=== PATIENT | male | born 1945 | race Caucasian/White ===

== ENCOUNTER → 2016-12-11 | Outpatient (CLI) | payer MEDICARE ==
[~2016-12-11] MED LIST: ASPIRIN81 MG PO; METOPROLOL SUCC50 M1 PO; SIMVASTATIN40 MG PO
== END | disposition home or self-care (01) ==
LOC: RAD 17:39
DX: J44.1 Chronic obstructive pulmonary disease with (acute) exacerbation (principal); I70.0 Atherosclerosis of aorta; J00 Acute nasopharyngitis [common cold]; T82.9XXA Unspecified complication of cardiac and vascular prosthetic device, implant and graft, initial encounter; Z87.891 Personal history of nicotine dependence

== ENCOUNTER 2018-03-09 09:09 | Inpatient (IN) | payer MEDICARE ==
[2018-03-09] VITALS (7 sets, daily range): BP systolic 117–133; BP diastolic 65–80
[~2018-03-09] VITALS: Ht 175.2 cm; Wt 69.0 kg
--- NOTE | ~2018-03-09 | CON ---
[place], [place] REPORT OF CONSULTATION NAME: CITLALI DORADO UNIT #: [id number] ROOM: 525 DOCTOR: TINO FOSTER MDHARMONY BIRTHDATE: [birth year] DOS: 03/10/2018 PULMONARY CONSULTATION, EVALUATION, AND MANAGEMENT CONSULTATION REQUESTED BY: Hospitalist service. PULMONARY ADDENDUM NOTE: The patient was independently seen and examined in [id number] encounter, history was confirmed. Physical examination performed. All the labs for this patient were reviewed. The images on PACS were also personally reviewed as well. The assessment note today was personally completed. Note done by the diagnostic medical sonographer was approved as well. REASON FOR CONSULTATION: Assessment of current mass lesion. HISTORY OF PRESENT ILLNESS: This is a 72-year-old white male who has been admitted to the hospital on the date of 03/09/2018. The patient presented to the hospital, complained of severe pain described between the shoulder blade, which was described to be quite severe. The pain was described on a scale of 1-10 initially 4/10 and then 10/10 for the patient's sharp pain. The patient was assessed in the Emergency Room for that. He had a CTA of the aorta done for the assessment of possibility of dissection of the aorta, which were noted negative. During the assessment, noted with a large mass lesion involving the left lung. He has been reporting symptoms of nasal congestion, but some drainage and coughing has been noted with intermittent sputum expectoration, clearing amount, without any symptoms of hemoptysis. The patient does have symptoms of shortness of breath with exertion. He has been reported symptoms of wheezing at times. He denies symptoms of chest trauma. REVIEW OF SYSTEMS: CONSTITUTIONAL: Fatigue and tiredness noted. Denies symptoms of fever or chills. EYES: Denies burning, redness, or tenderness. EARS, NOSE, THROAT SYMPTOMS: Denies sore throat, hoarseness, otalgia, postnasal drainage, or epistaxis. CARDIOVASCULAR: Denies angina pain, edema, or pain of the lower extremities. GASTROINTESTINAL: Denies dysphagia, nausea, vomiting, diarrhea, abdominal pain, hematemesis, melena, or hematochezia. SKIN: Denies abnormal lesions or rashes. CENTRAL NERVOUS SYSTEM: Denies dizziness, diplopia, or syncopal episodes. MUSCULOSKELETAL: Denies any joint pain, redness, or tenderness. Remaining systems were reviewed. They were noted all negative. PAST MEDICAL HISTORY: Known with history of: 1. Coronary artery disease. 2. Hyperlipidemia. 3. Essential hypertension. 4. Nicotine dependence. 5. Cardiac dysrhythmias. [place], [place] REPORT OF CONSULTATION NAME: CITLALI DORADO UNIT #: [id number] ROOM: [facility] DOCTOR: HARMONY UNDERWOOD MD BIRTHDATE: [birth year] PAST SURGICAL HISTORY: 1. AICD insertion in the past. 2. Coronary artery bypass grafting. 3. Right toe surgery. FAMILY HISTORY: The patient's father at 76 years old with complications of colon cancer. Mother at the age of 86 years from unknown pulmonary disease. SOCIAL HISTORY: The patient is , has 8 children, lives at home. Smoking noted at the age of [age] years old, pack of cigarettes per day, active use until hospitalization. He does 4-5 drinks of beer per month. He does not have any occupational related pulmonary exposure to any dust or chemicals. HOME MEDICATIONS: Were listed as aspirin, Flexeril, metoprolol succinate, and simvastatin. DRUG ALLERGIES: NOTED ALLERGY TO IBUPROFEN. PHYSICAL EXAMINATION: GENERAL: This is a 72-year-old male who has been currently sitting comfortably on the bed without any acute distress at this time. Height of 5 feet 9 inches, weight 252 pounds, BMI 22.4. VITAL SIGNS: Normal temperature since admission, respiratory rate 17-20, heart rate of 84-101, blood pressure 120/78-129/75. Pulse oxygen saturation on room air was 92% saturation. HEENT: Head was atraumatic. Eyes, nonicterus. NECK: Supple. CARDIOVASCULAR: S1, S2 is audible. LUNGS: The patient was noted with moderate decreased breath sounds bilaterally. There was no wheeze or crackles. ABDOMEN: Soft, flat, nontender. Bowel sounds present. EXTREMITIES: No acute edema, clubbing, or cyanosis. MUSCULOSKELETAL: Without any acute deformities. CENTRAL NERVOUS SYSTEM: Cranial nerves 2-12 intact. LABORATORY DATA: CBC yesterday on admission, WBC count 11.3, normal hemoglobin, hematocrit, and platelet count. Lactic acid was noted 1.4. PT/PTT yesterday were normal. CMP that was done yesterday, normal BUN and creatinine, sodium 132. The CMP that was done on 03/10/2018, normal BUN and creatinine and sodium level. CBC that was done this morning, normal WBC count, hemoglobin 13.3 with normal platelet count. Influenza A and B, nasal washing antigens were noted as negative. The chest x-ray shows infiltration, consolidation in the left upper lobe with some changes, hyperinflation. The CT scan of the chest, which was done as a part of the CTA protocol was reviewed and it does not show any evidence of aortic dissection. Findings of centrilobular emphysema noted in the lungs bilaterally. Large area of consolidation with air bronchogram noted with mass-like lesion. The patient was suspected with significant lymphadenopathy as well as 2 cm precarinal mass. The mass was measured as 3.6 x 2.3 cm in size, 2.5 cm left adrenal mass was also noted with significant subcarinal [place], [place] REPORT OF CONSULTATION NAME: CITLALI DORADO UNIT #: [id number] ROOM: [facility] DOCTOR: AALIYAH UNDERWOOD MDM BIRTHDATE: [birth year] lymphadenopathy as well. There were no pleural effusions. The right lung was noted clear. IMPRESSION: 1. The patient was currently admitted to the hospital, was noted with current significant pathological lymph node enlargement with mass-like area for consolidation and mild hyponatremia. The differential currently could be considered as a possibility of acute pneumonia. The patient with cavitation as well as a strong possibility of primary lung malignancy. 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 2. Chronic longstanding nicotine abuse. 3. Chronic obstructive pulmonary disease. COPD would be noted for the patient's acute exacerbation, new onset on this admission as well. 4. History of known coronary artery disease, coronary bypass grafting. 5. History of cardiac dysrhythmia with the patient's AICD in place. PLAN OF MANAGEMENT: The patient would continue current antibiotics. The patient covered for the community-acquired infection. Therapeutic bronchoscopy diagnostic was scheduled to be done tomorrow morning with consideration of the biopsy of the left upper lobe in case of absence of any endobronchial lesion would be done. Bronchodilator will be considered. The risk and benefits of the procedure were discussed. Nicotine replacement patch to overcome the nicotine withdrawal. Sputum for Gram stain and culture. Urine for Legionella antigen and strep antigen will be obtained. Other additional treatment changes will be ordered based on the progression of his illness. Assessment and management has been discussed in detail with the patient and family members. Thanks for allowing me to participate in the care of this patient. HARMONY JIMÉNEZ MD CM:CONSTR:REPORT OF CONSULTATION 1335 03/23/18 0920 interface
--- NOTE | ~2018-03-09 | PR ---
[place], [place] PROGRESS NOTE NAME: CITLALI DORADO UNIT #: [id number] ROOM: 525 DOCTOR: FAUSTINO ALBRECHT BIRTHDATE: [birth year] DOS: 03/11/2018 PULMONARY SERVICE PROGRESS NOTE SUBJECTIVE: This patient was seen and examined on 03/11/2018. The patient notes no current change in status. The patient's shortness of breath has not changed. DICTATION ENDS HERE FAUSTINO ALBRECHT DO HARMONY JIMÉNEZ MD CM:DEEPAK [id number] FAUSTINO ALBRECHT 03/12/18 1106 interface
--- NOTE | ~2018-03-09 | EKG ---
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
--- NOTE | ~2018-03-09 | PROC NOTE ---
[place], [place] PROCEDURE NOTE NAME: CITLALI DORADO UNIT #: [id number] ROOM: 525 DOCTOR: TINO FOSTER MD,HARMONY BIRTHDATE: [birth year] DOS: 03/11/2018 PROCEDURE: Bronchoscopy, transbronchial biopsy. PREOPERATIVE DIAGNOSIS: Left upper lung mass. POSTOPERATIVE DIAGNOSES: Left upper lung mass. BLOOD LOSS: None. ANESTHESIA: Local MAC. PROCEDURE DESCRIPTION: Informed consent obtained. The patient brought to the OR and placed in supine position. Conscious sedation administered by the Anesthesia Department in the supine position. The bronchoscope advanced into the airway into the laryngeal area., 10 mL of 2% lidocaine was used to anesthetize the vocal cord as well as the left main stem bronchus. The bronchoscope entered vocal cord, which were moving symmetrically with movements. The tracheal lumen was noted with small amount of mucoid secretion suctioned out. Right upper, right middle, right lower, left lower, and lingular opening was noted with some mucus, which was suctioned out with normal saline wash. Possible submucosal infiltration of the malignant process noted in the left upper lobe openings. Transbronchial biopsy was done with the help of fluoroscopy. Procedure was well tolerated by the patient. There was no bleeding noted with significant however, 10 mL of diluted epinephrine 1:10,000 was lavaged to the area to prevent any bleeding. Procedure was completed without difficulty. Postoperative findings were discussed with the patient's spouse. HARMONY JIMÉNEZ MD CM:PROCNOTE:PROCEDURE NOTE 1029 1622 HARMONY FOSTER MD
--- NOTE | ~2018-03-09 | PR ---
[place], [place] PROGRESS NOTE NAME: CITLALI DORADO UNIT #: [id number] ROOM: 525 DOCTOR: HARMONY UNDERWOOD MD BIRTHDATE: [birth year] DOS: 03/11/2018 PULMONARY ADDENDUM NOTE The patient was independently seen and examined in [id number] encounter today's visit of 03/11/2018. He has been noted comfortable, kept n.p.o. for past midnight for bronchoscopy that was planned to do transbronchial biopsies. He was noted with symptoms of coughing, but there was no sputum expectoration. Denies symptoms of fever or chills. Denies symptoms of any chest pain. The patient has not been noted any symptoms of headache, or diplopia. Remaining systems were reviewed. They were noted all negative. PHYSICAL EXAMINATION: VITAL SIGNS: Normal temperature, respiratory rate of 20, heart rate of 83, blood pressure 150/76 this morning. The pulse oxygen saturation on room air 92% saturation. HEENT: Head was atraumatic. Eyes nonicterus. NECK: Supple. CARDIOVASCULAR: S1, S2 is audible. LUNGS: The patient was noted with decreased breath sounds without any crackles. Scattered expiratory wheezing was present. ABDOMEN: Soft, nontender. Bowel sounds present. EXTREMITIES: No acute edema. MUSCULOSKELETAL: Without acute deformities. CENTRAL NERVOUS SYSTEM: Cranial nerves 2-12 intact. LABORATORY DATA: The patient's CBC today, WBC count 17.8, hemoglobin and hematocrit normal. Platelet count normal. BMP noted resolution of the hyponatremia with normal BUN and creatinine as well. Glucose mildly elevated at 136. IMPRESSION: The patient who has been currently noted with suspected malignancy involving the left lung with significant lymphadenopathy with possible acute pneumonia superimposed as well with ongoing acute exacerbation of chronic obstructive pulmonary disease would be considered between small cell and squamous cell cancer. PLAN OF TREATMENT: Proceed with the bronchoscopy as planned. Continue therapy, plan of management, other care, plan of therapy and care plan. Usual care. Supportive care and therapies. Any modification to treatment if necessary for his management will be changed after the bronchoscopy. [place], [place] PROGRESS NOTE NAME: CITLALI DORADO UNIT #: [id number] ROOM: 525 DOCTOR: HARMONY UNDERWOOD MD BIRTHDATE: [birth year] HARMONY JIMÉNEZ MD CM:PNTRANS [id number] HARMONY FOSTER MD 03/23/18 0921 interface
--- NOTE | ~2018-03-09 | EKG ---
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
--- NOTE | ~2018-03-09 | PR ---
[place], [place] PROGRESS NOTE NAME: CITLALI DORADO UNIT #: [id number] ROOM: 525 DOCTOR: TINO FOSTER MD,HARMONY BIRTHDATE: [birth year] DOS: 03/12/2018 SUBJECTIVE: The patient noted comfortable at this time, resting on the bed without any acute distress, has a successful bronchoscopy done yesterday with mucus impaction. Transbronchial biopsy was also done for the left upper lung mass. The patient has not been noted complication after the procedure. The coughing has improved significantly. After bronchoscopy this morning, the patient was assessed, sitting on the bed. OBJECTIVE: VITAL SIGNS: Normal temperature, respiratory rate 20, heart rate 80, blood pressure 120/76. Pulse oxygen saturation on room air 92% saturation at rest was noted. HEAD, EYES, EARS, NOSE, AND THROAT: Examination shows head was atraumatic. Eyes nonicterus. NECK: Supple. CARDIOVASCULAR SYSTEM: S1, S2 audible. LUNGS: Noted without any wheeze or crackles. ABDOMEN: Soft, nontender. IMPRESSION: 1. Resolving acute exacerbation of chronic obstructive pulmonary disease. 2. Left upper lung mass. Lymphadenopathy was also noted. Status post bronchoscopy, pending results of the transbronchial biopsy. PLAN OF TREATMENT: The patient could be discharged home today at this time for further assessment as an outpatient. He was prescribed tapering dose of prednisone and oral antibiotics and short-acting bronchodilators. HARMONY JIMÉNEZ MD CM:PNTRANS 1343 1522 HARMONY FOSTER MD 03/23/18 0923 interface
--- NOTE | ~2018-03-09 | CON ---
[place], [place] REPORT OF CONSULTATION NAME: CITLALI DORADO UNIT #: [id number] ROOM: 525 DOCTOR: STORMY PAZ DO BIRTHDATE: [birth year] DOS: 03/10/2018 REASON FOR CONSULTATION: Cavitary lung lesion pneumonia versus malignancy. HISTORY OF PRESENT ILLNESS: The patient is a 72-year-old male who presented due to upper back pain and flu-like symptoms. The patient reports that about a month ago, he started to have back pain between his shoulder blades, which kept him up at night. The patient describes the pain as a constant ache in the middle of his back and usually 4/10, but has been up to a 10/10 at times. The patient reports he has taken Tylenol, which helps him mildly with the pain. The patient also reports congestion, rhinorrhea, productive cough with clear sputum and occasional headache. The patient also reports that he has been losing weight recently for the past few months. The patient denies any chest pain, lightheadedness, nausea, vomiting, abdominal pain, diarrhea, melena, fever or chills. In the ER, the patient was found to have left upper lobe pneumonia on chest x-ray and he was admitted for IV antibiotics and further care. MEDICAL HISTORY: PAST MEDICAL PROBLEMS: Coronary artery disease, hyperlipidemia, hypertension, moderate protein-calorie malnutrition, tobacco abuse. PAST SURGICAL HISTORY: History of quadruple bypass and cardiac pacemaker. PAST SOCIAL HISTORY: The patient drinks about 4-5 beers a month. Does not use illicit drugs and has smoked about 1 pack a day since 19 years old. FAMILY HISTORY: Father is at age 76 from colon cancer. Mother in her 60s, unknown cause of . ALLERGIES: IBUPROFEN. CURRENT MEDICATIONS: Aspirin 81 mg daily, cyclobenzaprine 10 mg at bedtime, metoprolol 50 mg daily and simvastatin 40 mg at bedtime. REVIEW OF SYSTEMS: GENERAL: Reports weight loss. Denies fever, chills, weight gain. HEENT: Reports nasal congestion, nose congestion. Denies any ear pain, changes in hearing or sight. CARDIOVASCULAR: Denies chest pain, palpitations, lower extremity edema, or diaphoresis. RESPIRATORY: Reports cough, wheezing, sputum production, shortness of breath. Denies any hemoptysis, dyspnea on exertion or stridor. ABDOMEN: Denies abdominal pain, nausea, vomiting, diarrhea, constipation, melena, hematochezia, hematemesis or loss of appetite. GENITOURINARY: Denies any dysuria, hematuria or change in frequency, urgency. NEUROLOGIC: Denies any lightheadedness, dizziness, confusion. PSYCHIATRIC: Denies any depression, anxiety, substance abuse. ENDOCRINE: Denies heat or cold intolerance. SKIN: Denies new rashes, lesions, ulcers. [place], [place] REPORT OF CONSULTATION NAME: CITLALI DORADO UNIT #: [id number] ROOM: [facility] DOCTOR: STORMY PAZ DO BIRTHDATE: [birth year] PHYSICAL EXAMINATION: VITAL SIGNS: Temperature 98.9, pulse 101, respiratory rate 20, blood pressure 133/77, pulse ox 92% on room air. GENERAL: The patient is alert and oriented x 3, in no acute distress. HEAD: Normocephalic, atraumatic. EYES: PERRLA. No lesions, ulcerations. Nonicteric. NECK: Supple without lesions, masses. HEART: Irregular rhythm, regular rate. No murmurs, no rubs, no gallops. LUNGS: No respiratory distress. Diminished breath sounds bilaterally with significant wheezing. ABDOMEN: Soft, bowel sounds present, nontender, nondistended. EXTREMITIES: No cyanosis, erythema, edema. NEUROLOGIC: Grossly intact. No focal neurological deficits. PSYCHIATRIC: Normal mood, normal affect. SKIN: Warm and dry. No lesions. LABORATORY DATA: White blood cell count 9.6, hemoglobin 13.3, hematocrit 41.4, platelets 323. Coagulation profile within normal limits. Sodium 136, potassium 4.1, chloride 105, carbon dioxide 27, BUN 13, creatinine 0.87. IMAGING: Chest x-ray showed left upper lobe pneumonia suspected obscured by pacer. CTA of aorta with runoff showed left upper lobe pneumonia, cavitary opacity in the left upper lobe, which could be related to pneumonia, but underlying mass is not excluded and followup will be needed after appropriate antibiotic treatment. There are multiple enlarged mediastinal and hilar nodes, all they could be reactive. The prominence that is also worrisome for underlying malignant process, aorta is unremarkable. Colonic diverticulosis without diverticulitis. ASSESSMENT: 1. Pneumonia. 2. Hyponatremia. 3. Lung mass. 4. Coronary artery disease. 5. Hyperlipidemia. 6. Hypertension. 7. Tobacco abuse. 8. Unintentional weight loss. TREATMENT PLAN: The patient was admitted to telemetry initially and started on IV Rocephin and Zithromax. A CT scan was reviewed and the process seen on CT scan is likely due to malignancy. Bronchoscopy will be planned for tomorrow morning to see if any lesions are available for biopsy. If no lesions are available for biopsy the patient will need a transthoracic biopsy via Interventional Radiology. Continue supportive care with bronchodilators and steroids 40 mg q.8 hours, reduction of a dose and antibiotics will be made accordingly to cultures and clinical progression. [place], [place] REPORT OF CONSULTATION NAME: CITLALI DORADO UNIT #: [id number] ROOM: [facility] DOCTOR: STORMY PAZ DO BIRTHDATE: [birth year] Stormy Paz DO HARMONY JIMÉNEZ MD CM:CONSTR:REPORT OF CONSULTATION 1316 03/11/18 1251 interface
--- NOTE | ~2018-03-09 | PR ---
[place], [place] PROGRESS NOTE NAME: CITLALI DORADO [facility] #: [id number] UNIT #: [id number] ROOM: 525 DOCTOR: FAUSTINO ALBRECHT BIRTHDATE: [birth year] DOS: 03/11/2018 PULMONARY PROGRESS NOTE SUBJECTIVE: The patient was examined on 03/11/2018. The patient complains of back pain. The patient denies shortness of breath or current change in physical status. The patient's congestion, rhinorrhea and productive cough with clear sputum still persist with no change. The patient denies chest pain, lightheadedness, nausea, vomiting, abdominal pain and fevers or chills. OBJECTIVE: VITAL SIGNS: The patient's temperature is normal, respiratory rate 22, pulse 95, blood pressure 110/63, pulse oxygen saturation of the patient on 2 liters nasal cannula is 93%. HEENT: Shows head was atraumatic. Eyes nonicterus. NECK: Supple. CARDIOVASCULAR: S1, S2 is audible. LUNGS: Wheezing is noted throughout. No crackles present. Wheezing is very mild. The patient was noted with moderate decreased breath sounds bilaterally. ABDOMEN: Soft, flat, nontender. Bowel sounds present. EXTREMITIES: No acute edema, clubbing or cyanosis. MUSCULOSKELETAL: Without any deformities. CENTRAL NERVOUS SYSTEM: Cranial nerves 2-12 intact. LABORATORY DATA: White blood cell count increased from 9.6 to 17.8, hemoglobin 13.6, platelet count 368. CMP that was done on 03/11/2018, BUN 17, creatinine 1.04, carbon dioxide 25, glucose 136. Urine for Legionella antigen and strep antigen pending. Bronchoscopy, gram stain and culture pending. ASSESSMENT: 1. The patient was currently admitted to the hospital with significant pathological lymph node enlargement with mass-like area for consolidation was found. There is a strong possibility of primary lung malignancy. 2. Chronic longstanding nicotine abuse. 3. Chronic obstructive pulmonary disease. 4. History of known coronary artery disease, coronary bypass grafting. 5. History of cardiac dysrhythmia with the patient's AICD in place. PLAN OF MANAGEMENT: Bronchoscopy was done this morning. Bronchoscopy did not show a big mass. The patient will probably need a transthoracic biopsy outpatient. Biopsy was still taken. The patient probably can be discharged tomorrow from a pulmonary standpoint and be worked up at outpatient. FAUSTINO ALBRECHT DO [place], [place] PROGRESS NOTE NAME: CITLALI DORADO UNIT #: [id number] ROOM: [facility] DOCTOR: FAUSTINO ALBRECHT BIRTHDATE: [birth year] HARMONY JIMÉNEZ MD CM:PNHAFSA [id number] [id number] FAUSTINO ALBERCHT 03/12/18 1113 interface
[2018-03-09 09:45] LABS: BASO % 0.4 % (0.0-1.0); EOS # 0.1 10*3/uL (0.0-0.4); EOS % 0.6 % (1.0-4.0); HEMATOCRIT 44.1 % (42.0-52.0); HEMOGLOBIN 14.4 g/dl (14.0-18.0); LYMPH # 2.2 10*3/uL (1.3-4.4); LYMPH % 19.3 % (27.0-41.0); MEAN CELL VOLUME 89.5 fl (80.0-94.0); MEAN CORPUSCULAR HGB 29.2 pg (27.0-31.0); MEAN CORPUSCULAR HGB CONC 32.7 g/dl (33.0-37.0); MEAN PLATELET VOLUME 9.3 fl (9.6-12.3); MONO # 1.5 10*3/uL (0.1-1.0); MONO % 12.9 % (3.0-9.0); NEUT # 7.5 10*3/uL (2.3-7.9); NEUT % 66.5 % (47.0-73.0); PLATELET COUNT AUTOMATED 328 10*3/uL (130-400); RED BLOOD COUNT 4.93 10*6/uL (4.50-5.90); RED CELL DISTRI WIDTH 14.2 % (0-14.5); WHITE BLOOD COUNT 11.3 10*3/uL (4.8-10.8)
[2018-03-09 10:01] LABS: ALBUMIN 2.8 gm/dl (3.1-4.5); ALKALINE PHOSPHATASE 55 U/L (45-117); BUN 16 mg/dl (7-24); CHLORIDE 99 mmol/L (98-107); CREATININE 1.04 mg/dL (0.70-1.30); LIPASE 88 U/L (73-393); POTASSIUM 4.1 mmol/L (3.5-5.1); SGOT/AST 15 IU/L (3-35); SGPT/ALT 13 U/L (12-78); SODIUM 132 mmol/L (136-145); TOTAL PROTEIN 7.2 gm/dL (6.4-8.2)
[2018-03-09 10:04] LABS: ACT PARTIAL THROMBO TIME 28.5 SECONDS (20.8-31.5); INTERNATIONAL NORM RATIO 1.1 (2.0-3.5)
[2018-03-09 10:11] LABS: TROPONIN I < 0.015 ng/ml (<0.045)
[2018-03-09 10:24] LABS: BILIRUBIN NEGATIVE (NEGATIVE); BLOOD NEGATIVE (NEGATIVE); CLARITY CLEAR (CLEAR); COLOR YELLOW (YELLOW); GLUCOSE NEGATIVE (NEGATIVE); KETONE NEGATIVE (NEGATIVE); LEUKO ESTERASE NEGATIVE (NEGATIVE); NITRITE NEGATIVE (NEGATIVE); UROBILINOGEN 0.2 E.U./dl (0.2-1.0)
[2018-03-09 10:40] LABS: BACTERIA TRACE
[2018-03-09] MEDS ORDERED: CYCLOBENZAPRINE10 MG PO (12:55)
[2018-03-10] VITALS: BP 131/73
[2018-03-10 06:34] LABS: ALBUMIN 2.3 gm/dl (3.1-4.5); ALKALINE PHOSPHATASE 42 U/L (45-117); BUN 13 mg/dl (7-24); CHLORIDE 105 mmol/L (98-107); CHOLESTEROL 120 mg/dL (<200); CREATININE 0.87 mg/dL (0.70-1.30); PHOSPHOROUS 2.6 mg/dL (2.5-4.9); POTASSIUM 4.1 mmol/L (3.5-5.1); SGOT/AST 12 IU/L (3-35); SGPT/ALT 9 U/L (12-78); SODIUM 136 mmol/L (136-145); TOTAL PROTEIN 6.4 gm/dL (6.4-8.2); TRIGLYCERIDES 85 mg/dl (<150); VLDL CHOLESTEROL 17 mg/dL (6-40)
[2018-03-10 06:39] LABS: FREE T4 1.35 ng/dl (0.76-1.46); HDL CHOLESTEROL 37 mg/dl (40-60); LDL CHOLESTEROL 66 mg/dL (9-159); THYROID STIM HORMONE (HS) 0.563 uIU/ml (0.358-4.75)
[2018-03-10 06:49] LABS: BASO % 0.3 % (0.0-1.0); EOS # 0.1 10*3/uL (0.0-0.4); HEMATOCRIT 41.4 % (42.0-52.0); HEMOGLOBIN 13.3 g/dl (14.0-18.0); LYMPH # 1.7 10*3/uL (1.3-4.4); LYMPH % 18.1 % (27.0-41.0); MEAN CELL VOLUME 90.6 fl (80.0-94.0); MEAN CORPUSCULAR HGB 29.1 pg (27.0-31.0); MEAN CORPUSCULAR HGB CONC 32.1 g/dl (33.0-37.0); MEAN PLATELET VOLUME 9.6 fl (9.6-12.3); MONO # 1.2 10*3/uL (0.1-1.0); MONO % 12.6 % (3.0-9.0); NEUT # 6.5 10*3/uL (2.3-7.9); NEUT % 67.7 % (47.0-73.0); PLATELET COUNT AUTOMATED 323 10*3/uL (130-400); RED BLOOD COUNT 4.57 10*6/uL (4.50-5.90); RED CELL DISTRI WIDTH 14.2 % (0-14.5); WHITE BLOOD COUNT 9.6 10*3/uL (4.8-10.8)
[2018-03-10 08:00] VITALS: BP 133/77
[2018-03-10 09:03] LABS: VITAMIN D, 25-HYDROXY 15.4 ng/mL (30-100)
[2018-03-10 12:00] VITALS: BP 113/68
[2018-03-10 14:23] LABS: ACT PARTIAL THROMBO TIME 30.8 SECONDS (20.8-31.5); INTERNATIONAL NORM RATIO 1.1 (2.0-3.5)
[2018-03-10 16:00] VITALS: BP 130/70
[2018-03-10 20:00] VITALS: BP 122/69
[2018-03-11] VITALS (9 sets, daily range): BP systolic 89–139; BP diastolic 49–76
[2018-03-11 07:43] LABS: BASO % 0.1 % (0.0-1.0); EOS % 0.1 % (1.0-4.0); HEMATOCRIT 42.8 % (42.0-52.0); HEMOGLOBIN 13.6 g/dl (14.0-18.0); LYMPH # 1.1 10*3/uL (1.3-4.4); MEAN CELL VOLUME 90.5 fl (80.0-94.0); MEAN CORPUSCULAR HGB 28.8 pg (27.0-31.0); MEAN CORPUSCULAR HGB CONC 31.8 g/dl (33.0-37.0); MEAN PLATELET VOLUME 9.5 fl (9.6-12.3); MONO # 0.9 10*3/uL (0.1-1.0); MONO % 4.8 % (3.0-9.0); NEUT # 15.7 10*3/uL (2.3-7.9); NEUT % 88.2 % (47.0-73.0); PLATELET COUNT AUTOMATED 368 10*3/uL (130-400); RED BLOOD COUNT 4.73 10*6/uL (4.50-5.90); WHITE BLOOD COUNT 17.8 10*3/uL (4.8-10.8)
[2018-03-11 08:11] LABS: ALBUMIN 2.6 gm/dl (3.1-4.5); BUN 17 mg/dl (7-24); CHLORIDE 103 mmol/L (98-107); POTASSIUM 3.9 mmol/L (3.5-5.1); SGPT/ALT 11 U/L (12-78); SODIUM 137 mmol/L (136-145)
[2018-03-11 08:14] LABS: ALKALINE PHOSPHATASE 53 U/L (45-117); CREATININE 1.04 mg/dL (0.70-1.30); SGOT/AST 11 IU/L (3-35); TOTAL PROTEIN 7.1 gm/dL (6.4-8.2)
[2018-03-11] MEDS ORDERED: METOPROLOL SUCC25 M2 PO (11:01)
[2018-03-12] VITALS: BP 111/65
[2018-03-12 06:34] LABS: BASO % 0.1 % (0.0-1.0); HEMATOCRIT 39.7 % (42.0-52.0); HEMOGLOBIN 12.4 g/dl (14.0-18.0); LYMPH # 1.1 10*3/uL (1.3-4.4); LYMPH % 5.2 % (27.0-41.0); MEAN CELL VOLUME 91.5 fl (80.0-94.0); MEAN CORPUSCULAR HGB 28.6 pg (27.0-31.0); MEAN CORPUSCULAR HGB CONC 31.2 g/dl (33.0-37.0); MEAN PLATELET VOLUME 9.8 fl (9.6-12.3); MONO # 1.1 10*3/uL (0.1-1.0); MONO % 5.1 % (3.0-9.0); NEUT # 18.3 10*3/uL (2.3-7.9); NEUT % 88.7 % (47.0-73.0); PLATELET COUNT AUTOMATED 348 10*3/uL (130-400); RED BLOOD COUNT 4.34 10*6/uL (4.50-5.90); RED CELL DISTRI WIDTH 14.3 % (0-14.5); WHITE BLOOD COUNT 20.7 10*3/uL (4.8-10.8)
[2018-03-12 06:57] LABS: BUN 18 mg/dl (7-24); CHLORIDE 103 mmol/L (98-107); SODIUM 138 mmol/L (136-145)
[2018-03-12 06:58] LABS: CREATININE 0.99 mg/dL (0.70-1.30)
[2018-03-12 08:00] VITALS: BP 120/76
[2018-03-12] MEDS ORDERED: ALBUTEROL2.5 MG/0.5 INH (10:45)
[2018-03-12] MEDS ORDERED: PREDNISONE10 MG PO (10:45)
[2018-03-12] MEDS ORDERED: DOXYCYCLINE100 M3 PO (10:45)
[2018-03-12] MEDS ORDERED: NORCO 5-325 TA1 EACH PO (11:32)
[2018-03-12 15:08] LABS: ACID FAST SPEC PROCESSING Concentration (.)
== END 2018-03-12 12:29 | disposition home or self-care (01) | DRG 166 ==
LOC: ED 09:09 → EDHOLD 11:06 → 5E 11:06
PROVIDERS: Emergency Medicine; Internal Medicine; Internal Medicine Critical Care Medicine; Podiatrist Primary Podiatric Medicine
PROC: 0BBG8ZX Excision of Left Upper Lung Lobe, Via Natural or Artificial Opening Endoscopic, Diagnostic (ICD-10-PCS; principal; 2018-03-11)
PROC: 0BC68ZZ Extirpation of Matter from Right Lower Lobe Bronchus, Via Natural or Artificial Opening Endoscopic (ICD-10-PCS; principal; 2018-03-11)
PROC: 0BC58ZZ Extirpation of Matter from Right Middle Lobe Bronchus, Via Natural or Artificial Opening Endoscopic (ICD-10-PCS; principal; 2018-03-11)
PROC: 0BC18ZZ Extirpation of Matter from Trachea, Via Natural or Artificial Opening Endoscopic (ICD-10-PCS; principal; 2018-03-11)
PROC: 0BC78ZZ Extirpation of Matter from Left Main Bronchus, Via Natural or Artificial Opening Endoscopic (ICD-10-PCS; principal; 2018-03-11)
PROC: 0BCB8ZZ Extirpation of Matter from Left Lower Lobe Bronchus, Via Natural or Artificial Opening Endoscopic (ICD-10-PCS; principal; 2018-03-11)
PROC: 0BC88ZZ Extirpation of Matter from Left Upper Lobe Bronchus, Via Natural or Artificial Opening Endoscopic (ICD-10-PCS; principal; 2018-03-11)
PROC: 0BC48ZZ Extirpation of Matter from Right Upper Lobe Bronchus, Via Natural or Artificial Opening Endoscopic (ICD-10-PCS; principal; 2018-03-11)
PROC: 0BC38ZZ Extirpation of Matter from Right Main Bronchus, Via Natural or Artificial Opening Endoscopic (ICD-10-PCS; principal; 2018-03-11)
PROC: 0BC98ZZ Extirpation of Matter from Lingula Bronchus, Via Natural or Artificial Opening Endoscopic (ICD-10-PCS; principal; 2018-03-11)
DX: C34.12 Malignant neoplasm of upper lobe, left bronchus or lung (principal); J18.1 Lobar pneumonia, unspecified organism; E87.1 Hypo-osmolality and hyponatremia; E44.0 Moderate protein-calorie malnutrition; J44.1 Chronic obstructive pulmonary disease with (acute) exacerbation; J44.0 Chronic obstructive pulmonary disease with (acute) lower respiratory infection; I25.10 Atherosclerotic heart disease of native coronary artery without angina pectoris; E78.5 Hyperlipidemia, unspecified; I10 Essential (primary) hypertension; F17.210 Nicotine dependence, cigarettes, uncomplicated; R59.1 Generalized enlarged lymph nodes; Z88.6 Allergy status to analgesic agent; Z95.5 Presence of coronary angioplasty implant and graft; Z95.0 Presence of cardiac pacemaker; Z80.0 Family history of malignant neoplasm of digestive organs; Z71.6 Tobacco abuse counseling; Z68.22 Body mass index [BMI] 22.0-22.9, adult; Z79.899 Other long term (current) drug therapy

== ENCOUNTER → 2018-03-17 | Outpatient (CLI) | payer MEDICARE ==
[~2018-03-17] MED LIST changes: +ALBUTEROL2.5 MG/0.5 INH; +CYCLOBENZAPRINE10 MG PO; +DOXYCYCLINE100 M3 PO; +METOPROLOL SUCC25 M2 PO; +NORCO 5-325 TA1 EACH PO; +PERCOCET 7.5-31 EACH PO; +PREDNISONE10 MG PO; +ZOFRAN4 MG PO
== END | disposition home or self-care (01) ==
LOC: RESCLI 01:06
DX: Z09 Encounter for follow-up examination after completed treatment for conditions other than malignant neoplasm (principal); I25.10 Atherosclerotic heart disease of native coronary artery without angina pectoris; C44.92 Squamous cell carcinoma of skin, unspecified; H60.391 Other infective otitis externa, right ear; R91.8 Other nonspecific abnormal finding of lung field; F17.200 Nicotine dependence, unspecified, uncomplicated; Z76.89 Persons encountering health services in other specified circumstances; Z79.82 Long term (current) use of aspirin; Z79.899 Other long term (current) drug therapy; Z88.8 Allergy status to other drugs, medicaments and biological substances

== ENCOUNTER 2018-03-29 09:35 | Emergency (ER) | payer MEDICARE ==
[~2018-03-29] VITALS: Ht 167.6 cm; Wt 71.2 kg
--- NOTE | ~2018-03-29 | EKG ---
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: : 1945 Requested By: EDGAR SIMMONS Order Number: [id number] Reading MD: Measurements Intervals [place] Rate: 102 P: 86 [place]: 123 QRS: 62 QRSD: 112 T: 73 QT: 341 QTc: 445 Interpretive Statements Sinus tachycardia Multiple premature complexes, vent \T\ supraven Probable anteroseptal infarct, old Nonspecific T abnormalities, lateral leads ST elevation, consider inferior injury Compared to ECG 03/10/2018 14:43:06 Myocardial infarct finding now present T-wave abnormality now present Sinus rhythm no longer present Atrial premature complex(es) no longer present ST (T wave) deviation still present CM:EKGRPT:ELECTROCARDIOGRAM REPORT 1041 0744 EDGAR WESTBROOK DRAFT REPORT EDGAR ARAYA
[~2018-03-29 09:35] MED LIST changes: -PERCOCET 7.5-31 EACH PO; -ZOFRAN4 MG PO
[2018-03-29 10:49] LABS: HEMATOCRIT 44.7 % (42.0-52.0); HEMOGLOBIN 14.3 g/dl (14.0-18.0); MEAN CELL VOLUME 90.5 fl (80.0-94.0); MEAN CORPUSCULAR HGB 28.9 pg (27.0-31.0); PLATELET COUNT AUTOMATED 230 10*3/uL (130-400); RED BLOOD COUNT 4.94 10*6/uL (4.50-5.90); RED CELL DISTRI WIDTH 14.2 % (0-14.5); WHITE BLOOD COUNT 12.9 10*3/uL (4.8-10.8)
[2018-03-29 10:56] LABS: ACT PARTIAL THROMBO TIME 27.2 SECONDS (20.8-31.5); INTERNATIONAL NORM RATIO 1.2 (2.0-3.5)
[2018-03-29 11:00] LABS: ALBUMIN 2.4 gm/dl (3.1-4.5); CREATININE 1.42 mg/dL (0.70-1.30); POTASSIUM 3.8 mmol/L (3.5-5.1)
[2018-03-29 11:03] LABS: TROPONIN I 0.827 ng/ml (<0.045)
[2018-03-29 11:05] LABS: PLATELET SUFFICIENCY NORMAL (NORMAL); TOTAL CELLS COUNTED 100 #CELLS
[2018-03-29 11:06] LABS: VACUOLATION OF NEUTROPHILS SLIGHT
[2018-03-29 12:32] LABS: BILIRUBIN NEGATIVE (NEGATIVE); BLOOD 1+ (NEGATIVE); CLARITY SL CLOUDY (CLEAR); COLOR YELLOW (YELLOW); GLUCOSE NEGATIVE (NEGATIVE); KETONE NEGATIVE (NEGATIVE); LEUKO ESTERASE NEGATIVE (NEGATIVE); NITRITE NEGATIVE (NEGATIVE); SPECIFIC GRAVITY 1.015 (1.005-1.030); UROBILINOGEN 0.2 E.U./dl (0.2-1.0)
[2018-03-29] MEDS ORDERED: PERCOCET 7.5-31 EACH PO (12:37)
[2018-03-29] MEDS ORDERED: ZOFRAN4 MG PO (12:38)
[2018-03-29 12:41] LABS: BACTERIA 2+; RBC 21-30 rbc/hpf (0-2)
== END 2018-03-29 13:52 | disposition short-term general hospital (02) ==
LOC: ED 09:35
PROVIDERS: Physician Assistant
DX: N17.9 Acute kidney failure, unspecified (principal); R79.89 Other specified abnormal findings of blood chemistry; E83.52 Hypercalcemia; C34.90 Malignant neoplasm of unspecified part of unspecified bronchus or lung; F17.200 Nicotine dependence, unspecified, uncomplicated; Z88.8 Allergy status to other drugs, medicaments and biological substances; Z79.2 Long term (current) use of antibiotics; Z79.899 Other long term (current) drug therapy; Z79.82 Long term (current) use of aspirin; Z95.0 Presence of cardiac pacemaker